=== PATIENT | female | born 1940 | race Caucasian/White ===

== ENCOUNTER → 2020-02-07 | Day surgery (SDC) | payer OTHER ==
--- NOTE | 2020-02-09 14:53 | PATH ---
Surgical Pathology Report Patient Name: MARY CADE [facility]. Rec. #: [id number] /Age/Gender: 1940 (Age: 79) / F Account: [id number] [facility] Taken: 02/07/2020 Received: 02/07/2020 Reported: 02/09/2020 Physicians: Dianelys Villalpando M.D. Specimen(s) Received A: LEFT BREAST AXILLA LYMPH NODE B: LEFT BREAST MASS Clinical History Non-palpable lesion, left breast 2:00 mass 0.5 x 0.4 cm Final Diagnosis A. LEFT AXILLARY LYMPH NODE, CORE BIOPSY: ONE LYMPH NODE, NEGATIVE FOR METASTATIC CARCINOMA (0/1). IMMUNOHISTOCHEMISTRY STAIN AE1/3 IS NEGATIVE FOR EPITHELIAL CELLS, CONFIRMS THE ABOVE DIAGNOSIS. Comment: Immunohistochemical stains performed and interpreted at [facility]. B. LEFT BREAST 2:00, 0.5 CM MASS, CORE BIOPSY: INVASIVE LOBULAR CARCINOMA, MODERATELY DIFFERENTIATED, WITH PLEOMORPHIC FEATURES, MEASURING 0.4 CM IN GREATEST DIMENSION ON THIS SLIDE. NO LOBULAR CARCINOMA IN SITU (LCIS) IDENTIFIED. Results of ER and ME studies performed on this specimen (block# B1) at [facility] are as follows: ER (clone [id number] mouse monoclonal antibody by [employer]): _x_ Positive: 100 % nuclear staining with strong intensity PgR (clone16 mouse monoclonal antibody by [employer]): _x_ Positive: 95 % nuclear staining with strong and moderate intensity Results of Her2 (IHC) & Ki-67 studies performed on block "B1 " at [place], [place] ([id number]) are as follows: Her2 IHC (EP3 from [employer], formerly known as [id number], using [employer] Polymer Refine detection kit): Negative (0) Ki-67: ~25% (intermediate proliferative index) Positive and negative controls (internal if applicable) show appropriate results. Formalin fixation and cold ischemic times are within current ASCO/CAP recommendations for ER, ME and Her2 testing. Comment: Immunohistochemical stains performed and interpreted at [facility] show the following results: smooth muscle myosin heavy chain and p63 show loss of the myoepithelial cell layer in the areas of invasive carcinoma. E-cadherin shows incomplete, weak membranous staining the tumor cells. Additional stain p120 performed at [facility], [place], [place] ([id number]) and interpreted at [facility] shows diffuse cytoplasmic staining. The morphology and the staining patterns support a lobular phenotype. Intradepartmental case reviewed with concordance on diagnosis, 02/09/2020. Electronically Signed Nilsa Whitaker M.D. Gross Description A. Received in formalin labeled "left axillary lymph node" are three seals to yellow cylindrical portions of fibroadipose tissue ranging from 0.5-0.8 Cm in length and averages 0.2 cm in diameter. The specimen is entirely submitted in 1 cassette. B. Received in formalin labeled "left breast 2:00 " are two seals to yellow cylindrical portions of fibroadipose tissue ranging from 0.6-1 cm in length and averages 0.2 cm in diameter. The specimen is entirely submitted in 1 cassette. Time to formalin fixation: Less than one minute Total formalin fixation time: 8 hours. PABLITO/02/07/2020 [place]02/07/2020
== END | disposition home or self-care (01) ==
LOC: JRADUS 10:09 → JRADUS-SUR 10:09
PROVIDERS: ATTEND Surgery Surgical Oncology
PROC: 0H9U3ZX Drainage of Left Breast, Percutaneous Approach, Diagnostic (ICD-10-PCS; principal; 2020-02-07)
PROC: 07D63ZX Extraction of Left Axillary Lymphatic, Percutaneous Approach, Diagnostic (ICD-10-PCS; 2020-02-07)
DX: C50.912 Malignant neoplasm of unspecified site of left female breast (principal); Z17.0 Estrogen receptor positive status [ER+]
CPT/HCPCS: 19083; 19084; 38505; 77065-TC; 87899; 88305-TC; 88341-TC; 88342-TC; A4648

== ENCOUNTER 2020-02-24 07:41 | Day surgery (SDC) | payer OTHER ==
--- NOTE | 2020-02-23 10:27 | HP ---
Admitting History and Physical - Primary Care Physician PCP: shannan - Admission Chief Complaint: left breast cancer History of Present Illness: Patient is a 79 yo female who was noted to have left breast mass at 2 o'clock and enlarged left axillary lymph on screening studies 01/2020. The patient underwent a core bx on 02/06 which was c/w invasive lobular cancer ER and [place] positive HER 2 neg. The core bx of the lymph node was negative for metastatic ca rcinoma. The MRI done 02/13 was c/w known dz. Patient is now presenting for left breast WE with snbx, lympho, mag seed placement. History Source: Patient Limitations to Obtaining History: No Limitations - Past Medical History Cardiovascular: Yes: HTN, Hyperlipdemia, Other (cardiac conduction disorder) Endocrine: Yes: Osteopenia - Past Surgical History Past Surgical History: Yes: Arthrosocopy (right knww), Cataract Removal, C- Section (x 2), Hysterectomy (DAYRON/BSO) Additional Past Surgical History: rotator cuff repair Home Medications - Allergies Allergies/Adverse Reactions: Allergies Allergy/AdvReac Type Severity Reaction Status Date / Time codeine Allergy Unknown Verified 02/23/20 10:32 naproxen [From Aleve] Allergy Unknown Verified 02/23/20 10:32 - Home Medications Home Medications (free text): bystolic. rosuvastatin. Vit D3. fish oil b. biotin Family Medical History Family History: Unremarkable Review of Systems - Review of Systems Musculoskeletal: reports: Joint Pain Physical Examination Constitutional: Yes: Well Nourished, Calm Breast(s): Yes: Other (full ptotic C-cup breasts without any suspicious masses or adenopathy noted bilaterally.) Problem List - Problems (1) Breast cancer, left Problems reviewed: Yes Code(s): C50.912 - MALIGNANT NEOPLASM OF UNSPECIFIED SITE OF LEFT FEMALE BREAST Qualifiers: Breast location: upper outer quadrant of breast Estrogen receptor status: positive Patient sex: female Qualified Code(s): C50.412 - Malignant neoplasm of upper-outer quadrant of left female breast; Z17.0 - Estrogen receptor positive status [ER+] Assessment/Plan Plan: Left breast WE with mag seed placement, snbx, lymphoscintogram, poss andx
[2020-02-23 12:06] VITALS: BMI 27.6
[2020-02-24] MEDS ORDERED: ONDANSETRON 4 MG/2 ML VIAL IVPUSH PRN ×2 (09:34→11:29)
[2020-02-24] MEDS ORDERED: LACTATED RINGERS SOLUTION 1,000 ML IV SCH (09:45)
[2020-02-24] MEDS ORDERED: SODIUM CHLORIDE 0.9% P/F 10 ML VIAL IJ ONE ×2 (10:07→11:48)
[2020-02-24] MEDS ORDERED: ceFAZolin SODIUM 1 GM VIAL ONE (10:07)
[2020-02-24] MEDS ORDERED: ONDANSETRON 4 MG/2 ML VIAL ONE ×2 (10:07→13:51)
[2020-02-24] MEDS ORDERED: DEXAMETHASONE SOD PHOSPHATE 4 MG/1 ML VIAL ONE (10:07)
[2020-02-24] MEDS ORDERED: LIDOCAINE HCL/PF 2% SDV 5ML VIAL ONE (10:07)
[2020-02-24] MEDS ORDERED: MIDAZOLAM HCL 2 MG/2 ML SINGLE DOSE VIAL ONE (10:11)
[2020-02-24] MEDS ORDERED: ISOSULFAN BLUE 10 MG/ML VIAL SQ ONE (10:24)
[2020-02-24] MEDS ORDERED: LIDOCAINE HCL 1%, 10 MG/ML (20ML VIAL) ONE (10:25)
[2020-02-24] MEDS ORDERED: BUPIVACAINE HCL/PF 0.25% (2.5MG/ML) 10 ML VIAL ONE (10:25)
[2020-02-24] MEDS ORDERED: GUM MASTIC/STORAX/MSAL/ALCOHOL 1 DRP DROPSBTL MC ONE (10:25)
[2020-02-24] MEDS ORDERED: KETOROLAC TROMETHAMINE 30 MG/1 ML VIAL IVPUSH PRN (11:29)
[2020-02-24] MEDS ORDERED: DEXTROSE 5%-0.45% SALINE 1,000 ML IV SCH (11:30)
[2020-02-24] MEDS ORDERED: BUPIVACAINE HCL/PF 0.25% (2.5MG/ML) 10 ML VIAL IJ ONE (12:52)
[2020-02-24] MEDS ORDERED: BUPIVACAINE HCL/PF 0.5% (5 MG/ML) 30 ML VIAL IJ ONE (12:52)
[2020-02-24] MEDS ORDERED: ACETAMINOPHEN 325 MG TABLET (FP) PO PRN (13:35)
[2020-02-24] MEDS ORDERED: KETOROLAC TROMETHAMINE 30 MG/1 ML VIAL ONE (13:51)
--- NOTE | 2020-02-24 14:06 | OP ---
DATE OF OPERATION: 02/24/2020 PREOPERATIVE DIAGNOSIS: Left breast cancer, upper outer quadrant. POSTOPERATIVE DIAGNOSIS: Left breast cancer, upper outer quadrant. PROCEDURE: Left breast partial mastectomy with Magseed placement and left axillary sentinel lymph node biopsy with 5 x 4 cm tissue transfer closure. ANESTHESIA: General, laryngeal mask airway anesthesia. PRIMARY SURGERY: Maeve Carmichael MD RECRUITER: ESTEFANIA Borja COMPLICATIONS: None. Briefly, the patient is a 79-year-old, G2, P2, postmenopausal white female with [place] and [place] descent with no family history of breast or ovarian cancer. Recent mammography showed a spiculated density in the upper outer aspect of the left breast on January 25, 2020. Ultrasound showed a 5-mm density in the left breast 2 o'clock region as well as a slightly enlarged left axillary lymph node. She underwent an ultrasound-guided core biopsy which showed an infiltrating lobular cancer which was ER/MI positive, HER2/matty negative with a Ki-67 of 25%. No other multifocal or contralateral lesions were seen on MRI. She did have a left lower axillary lymph node biopsy as well which was benign. The patient was advised on undergoing a left breast partial mastectomy, sentinel lymph node biopsy. She was brought in for the procedure on February 24, 2020. She first went to [facility] where a Magseed was placed as well as a lymphoscintigraphy performed. She was brought to the [place] [facility]. In the holding area, site verification was made, and informed consent was obtained. She underwent COVID testing preoperatively, which was negative. She was brought into the operating room and laid on the OR table in the supine position. Venodynes were placed on the lower extremities prior to induction. She received a gram of Ancef prior to incision. She underwent general laryngeal mask airway anesthesia. The left breast was sterilely prepped and draped in usual fashion, and 3 mL of Lymphazurin blue were injected over the Magseed placement site, and massage was instituted. Timeout was performed. Incision was made just below the hair-bearing area of the left axilla, and dissection was undertaken using the navigator Neoprobe to direct the dissection. Two sentinel nodes were found in the level I region of the left axilla, which were blue and hot with 10-second gamma counts of 24,907 and 2386. A third non-sentinel lymph node was removed, which was not blue or hot, but came out with the initial sentinel lymph node. All 3 nodes were sent separately to Pathology in formalin. Background count after removal of these 3 nodes was 650. Hemostasis was achieved. The axillary wound was closed using interrupted 2-0 plain sutures and interrupted 3-0 deep dermal Vicryl suture and a running 4-0 subcuticular Biosyn suture. At this point, the wide excision was undertaken around the Magseed. A curvilinear incision was made around the 3 o'clock region of the left breast, and the CentriMag device was used to find the Magseed around the 3 o'clock region of the left breast. Wide excisions were taken around the seed all the way down to the pectoralis major muscle. The specimen was oriented with a long lateral, short superior suture, and specimen radiographs showed removal of the clips in question. Hemostasis was achieved. Separate margins were taken on the superior, inferior, medial, lateral, deep, and anterior margins with a suture marking the biopsy cavity side. All margins were sent separately to Pathology in formalin as wide excision margins. A 5 x 4 cm tissue transfer closure was then accomplished by undermining the breast tissue, reapproximating it using 2-0 plain suture. The skin was closed using interrupted 3-0 deep dermal Vicryl suture and a running 4-0 subcuticular Biosyn suture. Mastisol and Steri-Strips were applied over the wounds. She was placed in a Surgi-Bra postoperatively. All sponge and needle counts were correct at the end of the case. Estimated blood loss was about 20 mL, and she was hemodynamically stable throughout. The patient will be recovered in the postanesthesia care unit and discharged home the same day once discharge criteria are met. She is to follow up in the office in 1 week for a formal wound pathology check. MAEVE CARMICHAEL M.D. [id number]
[2020-02-24 14:52] VITALS: BP 128/82; PULSE 64
[2020-02-24 15:26] VITALS: TEMP 98
== END 2020-02-24 15:20 | disposition home or self-care (01) ==
LOC: FASUSAT 07:41
PROVIDERS: ATTEND Surgery Surgical Oncology
PROC: 0HBU0ZZ Excision of Left Breast, Open Approach (ICD-10-PCS; principal; 2020-02-24 11:33)
PROC: 0JX60ZC Transfer Chest Subcutaneous Tissue and Fascia with Skin, Subcutaneous Tissue and Fascia, Open Approach (ICD-10-PCS; 2020-02-24 11:33)
DX: C50.412 Malignant neoplasm of upper-outer quadrant of left female breast (principal); Z17.0 Estrogen receptor positive status [ER+]; I10 Essential (primary) hypertension; E78.5 Hyperlipidemia, unspecified; I45.9 Conduction disorder, unspecified; M85.80 Other specified disorders of bone density and structure, unspecified site
CPT/HCPCS: 19281; 76098-TC-FY; 78195-TC; 94760; A9541